=== PATIENT | female | born 1950 | race Caucasian/White ===

== ENCOUNTER 2016-03-08 16:02 | Emergency (ER) | payer MEDICARE, OTHER ==
[2016-03-08] MEDS ORDERED: ALBUTEROL/IPRATROPIUM 2.5/0.5 MG 3 ML/EACH DOSE ONE (17:06)
[2016-03-08] MEDS ORDERED: ASPIRIN CHEWTAB 81 MG TABLET ONE (17:23)
[2016-03-08 17:31] LABS: ABSOLUTE NEUTROPHIL COUNT 6.7 K/mm3 (1.8-7.7); BASO # 0.1 K/mm3 (0.0-0.2); EOS # 0.4 (0.0-0.5); EOS % 3.1 % (0.9-2.9); HEMATOCRIT 38.5 % (37.0-47.0); HEMOGLOBIN 12.7 gm/l (12.0-16.0); IMM NEUT # 0.1 K/mm3 (0-0.2); IMM NEUT% 0.5 % (0-1); LYMPH # 3.2 (1.0-4.8); LYMPH % 28.2 % (15-45); MEAN CELL VOLUME 92.5 fl (81.0-99.0); MEAN CORPUSCULAR HEMOGLOBIN 30.5 pg (27.0-31.0); MEAN PLATELET VOLUME 11.7 fl (7.4-10.4); MONO # 0.9 (0.0-0.8); MONO % 8.1 % (4-12); NEUT % 59.1 % (43-75); PLATELET COUNT 166 K/mm3 (130-400); RED CELL DISTRIBUTION WIDTH 12.3 % (11.5-14.5)
[2016-03-08 17:38] LABS: ALB/GLOB RATIO 1.1 (>1.0); CALCIUM 9.7 mg/dL (8.6-10.3)
--- NOTE | 2016-03-08 18:07 | RAD ---
Name: MARISA REYNOLDS Exam: Two-view chest Comparison: None Clinical history: Shortness of breath and cough Findings: 2 views the chest are submitted. Heart is not enlarged. There is calcification of the aorta. Mediastinum and hilar structures normal. There is mild subsegmental atelectasis or scar left lung base. There is no overt failure dense consolidation pleural effusion or pneumothorax. Regional skeleton is within normal limits for the patient's age. Impression: No acute cardiopulmonary process
[2016-03-08] MEDS ORDERED: ALBUTEROL NEB 2.5 MG/3 ML VIAL.NEB NEB ONE (18:35)
--- NOTE | 2016-03-08 20:19 | US ---
Name: MARISA REYNOLDS Exam: Liver ultrasound Comparison: None Clinical history: Right upper quadrant pain. Prior cholecystectomy. Findings: Liver is enlarged at nearly 22 cm. Liver echotexture is fairly homogeneous. Liver echodensity is increased. There is no intra or extrahepatic biliary dilation. Common bile duct is normal at 4 mm. There is hepatofugal flow within the portal vein. Visualized liver capsule is fairly smooth. There is no perihepatic fluid. The patient is known to have had a cholecystectomy. Impression: 1. Hepatomegaly with features compatible with a diffuse hepatocellular disease which is most commonly fatty infiltration. Correlation with liver function tests recommended. 2. No biliary obstruction 3. No perihepatic fluid 4. Prior cholecystectomy
== END 2016-03-08 21:06 | disposition home or self-care (01) ==
LOC: ED 16:02
DX: R07.9 Chest pain, unspecified (principal); J44.1 Chronic obstructive pulmonary disease with (acute) exacerbation; I10 Essential (primary) hypertension; E11.9 Type 2 diabetes mellitus without complications; Z79.84 Long term (current) use of oral hypoglycemic drugs
CPT/HCPCS: 83690; 85025; 82553; 80053; 84484 ×2; 71020; 76705; 94640 ×2; 99284 ×2; A9270